=== PATIENT | female | born 1950 | race Caucasian/White ===

== ENCOUNTER 2021-11-08 10:27 | Emergency (ER) | payer OTHER ==
--- NOTE | 2021-11-08 10:56 | RAD REPORT ---
EXAM DESCRIPTION: CT - Ct Stroke Brain Wo Cont - 11/08/2021 10:43 am CLINICAL HISTORY: Weakness COMPARISON: No comparisons TECHNIQUE: All CT scans are performed using dose optimization technique as appropriate and may inclu de automated exposure control or mA/KV adjustment according to patient size. FINDINGS: No intracranial hemorrhage, hydrocephalus or extra-axial fluid collection.No areas of brai n edema or evidence of midline shift. Subcortical hypoattenuation left frontal lobe without edema. Th is does not appear acute and may reflect chronic small vessel ischemic changes. The paranasal sinuses and mastoids are clear. The calvarium is intact. IMPRESSION: Subcortical hypoattenuation in the left frontal lobe is favored chronic. No acute large vascular territory infarcts or hemorrhage. MRI more sensitive for acute ischemia. Regarding no acute findings, discussed with Dr. Flores by Dr. Erickson at 1040 am on 11/08/21.
[2021-11-08 11:03] LABS: Absolute Lymphocytes (CBC) 3.6 K/uL (0.7-4.9); Hematocrit 44.4 % (36.0-45.0); Lymphocytes % 35.3 % (15.3-44.8); MPV 8.3 fL (7.6-11.3); RBC Red Blood Cell Count 4.88 M/uL (3.86-4.86)
[2021-11-08] MEDS ORDERED: FOLIC ACID 5 MG/ML VIAL ONE (11:04)
[2021-11-08] MEDS ORDERED: TENECTEPLASE 50 MG/10 ML VIAL IV ONE (11:04)
[2021-11-08] MEDS ORDERED: NA CHLORIDE 0.9% 1,000 ML ONE (11:05)
[2021-11-08 11:16] LABS: Potassium 3.4 mmol/L (3.5-5.1)
--- NOTE | 2021-11-08 11:25 | RAD REPORT ---
EXAM DESCRIPTION: RAD - Chest Single View - 11/08/2021 11:09 am CLINICAL HISTORY: STROKE ALERT COMPARISON: No comparisons FINDINGS: Lines: None. Lungs: No evidence of edema or pneumonia. Pleural: No significant pleural effusions or pneumothorax. Cardiac: The heart size is within normal limits. Bones: No acute fractures. Other: IMPRESSION: No acute cardiopulmonary disease.
--- NOTE | 2021-11-08 11:49 | RAD REPORT ---
EXAM DESCRIPTION: CT - Neck Angio - 11/08/2021 11:39 am CLINICAL HISTORY: Neuro deficit, acute, stroke suspected COMPARISON: No comparisons TECHNIQUE: CT angiography of the neck vessels was performed with MIPs. All CT scans are performed using dose optimization technique as appropriate and may include automated exposure control or mA/KV adjustment according to patient size. FINDINGS: A left aortic arch is identified with normal three vessel configuration of the great vesse ls. Intraluminal thrombus in the left internal carotid artery proximally. No stenoses.The right carotid s ystem is unremarkable. No significant stenosis is identified involving the cervical segments of both internal carotid arteri es. Normal flow is seen within both vertebral arteries. Emphysema IMPRESSION: Irregular intraluminal thrombus in the left proximal ICA could be the source of an embol ic infarct. No hemodynamically significant stenoses.
--- NOTE | 2021-11-08 11:50 | RAD REPORT ---
EXAM DESCRIPTION: CT - Head angio - 11/08/2021 11:39 am CLINICAL HISTORY: Neuro deficit, acute, stroke suspected COMPARISON: Ct Stroke Brain Wo Cont dated 11/08/2021 TECHNIQUE: CT angiography of the head was performed with MIPs. All CT scans are performed using dose optimization technique as appropriate and may include automated exposure control or mA/KV adjustment according to patient size. FINDINGS: Anterior circulation: No aneurysm or large vessel occlusion. No hemodynamically significant stenosis. No arteriovenous malf ormation identified. Posterior circulation: No aneurysm or large vessel occlusion. No hemodynamically significant stenosis. No arteriovenous malf ormation identified. IMPRESSION: No significant flow abnormality is detected.
--- NOTE | 2021-11-08 12:02 | EDPHYS ---
Physician Documentation [facility] Name: Emma Johnson Age: 71 yrs Sex: Female : 1950 Arrival Date: 11/08/2021 Time: 10:28 Bed 8 Private MD: None, None ED Physician Chandrakant Flores HPI: 11/08 10:56 This 71 yrs old Female presents to ER via Wheelchair with complaints of ric Weakness. 10:56 The patient presents to the emergency department with weakness of the right upper ric extremity, right lower extremity, that is mild, a speech or higher order brain function problem, aphasia, difficulty standing, the patient is off balance, paresthesias of the right lower extremity, right upper extremity, that is mild. Onset: The symptoms/episode began/occurred 1.25 hour(s) ago. Context: occurred at an industrial site. Associated signs and symptoms: The patient has no apparent associated signs or symptoms. Severity of symptoms: At their worst the symptoms were mild in the emergency department the symptoms have improved mildly. Patient's baseline: Neuro: alert but confused. Current symptoms: Currently, the patient is not experiencing any symptoms. Current symptoms: right arm and leg, heavy, speech difficult. The patient has not experienced similar symptoms in the past. Historical: - Allergies: 10:29 PENICILLINS; tw2 10:29 TETRACYCLINES; tw2 - Home Meds: 10:29 None [Active]; tw2 - PMHx: 10:29 None; tw2 - PSHx: 10:29 None; tw2 - Immunization history:: Client reports receiving the 2nd dose of the Covid vaccine. - Social history:: Smoking status: Patient reports the use of cigarette tobacco products, 1 or 2 cigarettes. - Family history:: not pertinent. ROS: 10:56 Constitutional: Negative for fever, chills, and weight loss, Eyes: Negative for injury, ric pain, redness, and discharge, ENT: Negative for injury, pain, and discharge, Neck: Negative for injury, pain, and swelling, Cardiovascular: Negative for chest pain, palpitations, and edema, Respiratory: Negative for shortness of breath, cough, wheezing, and pleuritic chest pain, Abdomen/GI: Negative for abdominal pain, nausea, vomiting, diarrhea, and constipation, Back: Negative for injury and pain, : Negative for injury, bleeding, discharge, and swelling, MS/Extremity: Negative for injury and deformity, Skin: Negative for injury, rash, and discoloration, Psych: Negative for depression, anxiety, suicide ideation, homicidal ideation, and hallucinations, Allergy/Immunology: Negative for hives, rash, and allergies, Endocrine: Negative for neck swelling, polydipsia, polyuria, polyphagia, and marked weight changes, Hematologic/Lymphatic: Negative for swollen nodes, abnormal bleeding, and unusual bruising. 10:56 Neuro: Positive for speech changes, weakness, of the right arm and right leg. Exam: 10:56 Constitutional: This is a well developed, well nourished patient who is awake, alert, ric and in no acute distress. Head/Face: Normocephalic, atraumatic. Eyes: Pupils equal round and reactive to light, extra-ocular motions intact. Lids and lashes normal. Conjunctiva and sclera are non-icteric and not injected. Cornea within normal limits. Periorbital areas with no swelling, redness, or edema. ENT: Nares patent. No nasal discharge, no septal abnormalities noted. Tympanic membranes are normal and external auditory canals are clear. Oropharynx with no redness, swelling, or masses, exudates, or evidence of obstruction, uvula midline. Mucous membranes moist. Neck: Trachea midline, no thyromegaly or masses palpated, and no cervical lymphadenopathy. Supple, full range of motion without nuchal rigidity, or vertebral point tenderness. No Meningismus. Chest/axilla: Normal chest wall appearance and motion. Nontender with no deformity. No lesions are appreciated. Cardiovascular: Regular rate and rhythm with a normal S1 and S2. No gallops, murmurs, or rubs. Normal PMI, no JVD. No pulse deficits. Respiratory: Lungs have equal breath sounds bilaterally, clear to auscultation and percussion. No rales, rhonchi or wheezes noted. No increased work of breathing, no retractions or nasal flaring. Abdomen/GI: Soft, non-tender, with normal bowel sounds. No distension or tympany. No guarding or rebound. No evidence of tenderness throughout. Back: No spinal tenderness. No costovertebral tenderness. Full range of motion. Skin: Warm, dry with normal turgor. Normal color with no rashes, no lesions, and no evidence of cellulitis. MS/ Extremity: Pulses equal, no cyanosis. Neurovascular intact. Full, normal range of motion. Neuro: Awake and alert, GCS 15, oriented to person, place, time, and situation. Cranial nerves II-XII grossly intact. Motor strength 5/5 in all extremities. Sensory grossly intact. Cerebellar exam normal. Normal gait. Psych: Awake, alert, with orientation to person, place and time. Behavior, mood, and affect are within normal limits. 11:16 ECG was reviewed by the Attending Physician. [facility] Vital Signs: 10:32 BP 156 / 74; Pulse 90; Resp 17; Temp 98.3(TE); Pulse Ox 100% on R/A; tw2 10:45 Weight 58.97 kg (R); Height 5 ft. 5 in. (165.10 cm); tw2 10:50 BP 182 / 96; Pulse 82; Resp 17; Pulse Ox 100% ; bp 11:15 BP 154 / 67; Pulse 78; Resp 20; Pulse Ox 96% ; bp 12:38 BP 154 / 71; Pulse 81; Resp 17; Pulse Ox 99% ; bp 13:57 BP 136 / 66; Pulse 72; Resp 16; Pulse Ox 95% ; bp 10:45 Body Mass Index 21.63 (58.97 kg, 165.10 cm) tw2 NIH Stroke Scale Scores: 10:40 NIHSS Score: 0 bp 10:56 NIHSS Score: 2 ric MDM: 10:31 Patient medically screened. [facility] 11:00 Data reviewed: vital signs, nurses notes, lab test result(s), EKG, radiologic studies, [facility] CT scan, plain films. Data interpreted: [employer] worker: rate is 82 beats/min, rhythm is regular, Pulse oximetry: on room air is 100 %. Test interpretation: by ED physician or midlevel provider: ECG, plain radiologic studies. Counseling: I had a detailed discussion with the patient and/or guardian regarding: the historical points, exam findings, and any diagnostic results supporting the discharge/admit diagnosis, lab results, radiology results. 11/08 10:48 Order name: Basic Metabolic Panel; Complete Time: 11:58 bp 11/08 10:48 Order name: CBC with Diff; Complete Time: 11:58 bp 11/08 10:48 Order name: Protime (+inr); Complete Time: 11:58 bp 11/08 10:48 Order name: Ptt, Activated; Complete Time: 11:58 bp 02 10:55 Order name: SARS-COV-2 RT PCR (Document "Date of Onset" if Symptomatic) [facility] 11/08 10:56 Order name: Sed Rate; Complete Time: 11:58 ric 11/08 10:38 Order name: CT Stroke Brain w/o Contrast; Complete Time: 11:58 bd 11/08 10:48 Order name: Stroke CXR 1 View; Complete Time: 11:58 bp 11/08 10:55 Order name: CT Head Angio; Complete Time: 11:58 ric 11/08 10:55 Order name: CT Neck Angio; Complete Time: 11:58 ric 11/08 10:56 Order name: CRP; Complete Time: 11:58 ric 11/08 12:03 Order name: Brain Wo Cont EDMS 11/08 12:33 Order name: Urine Dipstick-Ancillary EDMS 11/08 10:48 Order name: EKG; Complete Time: 10:49 bp 11/08 10:48 Order name: Accucheck; Complete Time: 10:48 bp 11/08 10:48 Order name: Cardiac monitoring; Complete Time: 10:48 bp 11/08 10:48 Order name: EKG - Nurse/Tech; Complete Time: 10:48 bp 11/08 10:48 Order name: IV Saline Lock; Complete Time: 10:48 bp 11/08 10:48 Order name: Labs collected and sent; Complete Time: 10:48 bp 11/08 10:48 Order name: NPO; Complete Time: 10:48 bp 11/08 10:48 Order name: O2 Per Protocol; Complete Time: 10:48 bp 11/08 10:48 Order name: O2 Sat Monitoring; Complete Time: 10:48 bp 11/08 10:48 Order name: Stroke Swallow Screen; Complete Time: 10:56 bp 02 10:56 Order name: Urine Dipstick-Ancillary (obtain specimen); Complete Time: 12:57 ric EC:16 Rate is 80 beats/min. Rhythm is regular. QRS [place] is Normal. PA interval is normal. QRS ric interval is normal. QT interval is normal. No Q waves. T waves are Normal. Clinical impression: NSR w/ Non-specific ST/T Changes and No evidence of ischemia. Interpreted by me. Reviewed by me. Administered Medications: 11:05 Drug: NS 0.9% 1000 ml Route: IV; Rate: 1 bolus; Site: right antecubital; bp 13:59 Follow up: IV Status: Completed infusion; IV Intake: 1000ml bp 11:05 Drug: foLIC Acid 1 mg Route: IVPB; Site: right antecubital; bp 13:59 Follow up: IV Status: Completed infusion bp 11:05 Drug: TNK FOR STROKE - Tenecteplase 0.25 mg/kg {Co-Signature: cuevas (Ember bp Au-Stager RN).} Route: IV; Rate: per protocol; Site: right antecubital; 11:11 Drug: TNK FOR STROKE - Tenecteplase 0.25 mg/kg {Co-Signature: cuevas (Ember bp Au-Stager RN).} Route: IV; Rate: per protocol; Site: right antecubital; 13:58 Follow up: IV Status: Completed infusion bp 11:12 Not Given (MED UNAVAILABLEe): Pepcid (famotidine) 20 mg IVP once; dilute with 10 mL bp 0.9% NaCl; give over 2 minutes 12:10 Drug: Aspirin 81 mg Route: PO; bp 12:30 Follow up: Response: No adverse reaction bp 12:10 Drug: Lipitor (atorvastatin) 20 mg Route: PO; bp 12:30 Follow up: Response: No adverse reaction bp 12:15 Drug: Potassium Effervescent Tablet 25 mEq Route: PO; bp 12:30 Follow up: Response: No adverse reaction bp Disposition Summary: 11/08/21 12:02 Transfer Ordered Transfer Location: 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 Level of Consciousness (LOC) - 0(Alert) 1b. Level of Consciousness (LOC) (Month \\T\\ Age) - 0(Both) 1c. LOC Commands (Open \\T\\ Closes Eyes/Content Strategy Lead) - 0(Both) 2. Best Gaze (Lateral Gaze Paresis) - 0(Normal) 3. Visual Field Loss - 0(No visual loss) 4. Facial Palsy - 0(Normal) 5a. Left Arm: Motor (10-second hold) - 0(No drift) 5b. Right Arm: Motor (10-second hold) - 0(No drift) 6a. Left Leg: Motor (5-second hold - always test supine) - 0(No drift) 6b. Right Leg: Motor (5-second hold - always test supine) - 0(No drift) 7. Limb Ataxia (finger/nose \\T\\ heel/ratliff - test with eyes open) - 0(Absent) 8. Sensory Loss (pinprick arms/legs/face) - 0(Normal) 9. Best Language: Aphasia (description/naming/reading) - 0(No aphasia) 10. Dysarthria (speech clarity - read or repeat words) - 0(Normal) 11. Extinction and Inattention (visual/tactile/auditory/spatial/personal) - 0(No abnormality) Initials: bp NIH Stroke Scale - NIH Stroke Score Date: 11/08/2021 Time: 10:56 Total Score = 2 1a. Level of Consciousness (LOC) - 0(Alert) 1b. Level of Consciousness (LOC) (Month \\T\\ Age) - 0(Both) 1c. LOC Commands (Open \\T\\ Closes Eyes/Content Strategy Lead) - 0(Both) 2. Best Gaze (Lateral Gaze Paresis) - 0(Normal) 3. Visual Field Loss - 0(No visual loss) 4. Facial Palsy - 0(Normal) 5a. Left Arm: Motor (10-second hold) - 0(No drift) 5b. Right Arm: Motor (10-second hold) - 0(No drift) 6a. Left Leg: Motor (5-second hold - always test supine) - 0(No drift) 6b. Right Leg: Motor (5-second hold - always test supine) - 0(No drift) 7. Limb Ataxia (finger/nose \\T\\ heel/ratliff - test with eyes open) - 0(Absent) 8. Sensory Loss (pinprick arms/legs/face) - 0(Normal) 9. Best Language: Aphasia (description/naming/reading) - 1(Mild to moderate aphasia) 10. Dysarthria (speech clarity - read or repeat words) - 1(Mild to Moderate) 11. Extinction and Inattention (visual/tactile/auditory/spatial/personal) - 0(No abnormality) Initials: ric Signatures: Dispatcher [employer] EDMS Chandrakant Flores MD MD cha Wise, Tara RN RN tw2 Josue Ma RN RN bp Ember Vizcaino RN cuevas Corrections: (The following items were deleted from the chart) 12:03 10:56 MR STROKE PROTOCOL+MRI.RAD.MARIOZ ordered. EDMS EDMS 12:10 12:02 to [facility] ric 13:59 12:10 to [facility] bp
--- NOTE | 2021-11-08 12:02 | ER ---
Nurse's Notes 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 10:30 An acute neurological deficit is present. The charge nurse has been notified. The bp patient has been moved to a treatment area. 10:32 Coronavirus screen: At this time, the client does not indicate any symptoms associated tw2 with coronavirus-19. Ebola Screen: Patient denies travel to an Ebola-affected area in the 21 days before illness onset. Initial Sepsis Screen: Does the patient meet any 2 criteria? No. Patient's initial sepsis screen is negative. Does the patient have a suspected source of infection? No. Patient's initial sepsis screen is negative. Risk Assessment: Do you want to hurt yourself or someone else? Patient reports no desire to harm self or others. Onset of symptoms was November 08, 2021 at 10:25. 10:32 Method Of Arrival: Wheelchair tw2 10:32 Acuity: SOMMER 3 tw2 Triage Assessment: 10:30 General: Appears in no apparent distress. slender, Behavior is calm, cooperative, tw2 appropriate for age. Pain: Denies pain. Neuro: Reports numbness in right arm speech is different. 10:32 The onset of the patients symptoms was November 08, 2021 at 09:57. tw2 Stroke Activation: Symptom onset < 3 hours Physician: Stroke Attending; Name: ; Notified At: ; Arrived At: Physician: Chief Stroke Resident; Name: ; Notified At: ; Arrived At: Physician: Stroke Resident; Name: ; Notified At: ; Arrived At: Physician: ED Attending; Name: ; Notified At: ; Arrived At: Physician: ED Resident; Name: ; Notified At: ; Arrived At: Historical: - Allergies: 10:29 PENICILLINS; tw2 10:29 TETRACYCLINES; tw2 - Home Meds: 10:29 None [Active]; tw2 - PMHx: 10:29 None; tw2 - PSHx: 10:29 None; tw2 - Immunization history:: Client reports receiving the 2nd dose of the Covid vaccine. - Social history:: Smoking status: Patient reports the use of cigarette tobacco products, 1 or 2 cigarettes. - Family history:: not pertinent. Screenin:34 Abuse screen: Denies threats or abuse. Nutritional screening: No deficits noted. tw2 Tuberculosis screening: No symptoms or risk factors identified. Fall Risk None identified. Assessment: 10:40 VAN Scoring: Arm Drift: Patients demonstrates NO arm weakness. Patient is VAN Negative. bp General: PT RETURNED FROM CT. 10:44 Reassessment: provider at bedside. bp 11:00 T-PA (Activase) Screening: Indications: Definite evidence of stroke, ischemic, embolic, bp or hypertensive: Yes. Treatment will start within 4.5 hours onset of symptoms: Yes. No evidence of intracranial hemorrhage or CT of head and no evidence of peripheral hemorrhage or recent CVA: Yes. Consent for thrombolytic therapy: Yes. Contraindications: Patient reports onset of signs and symptoms of stroke greater than 6 hours ago: No. 11:05 Reassessment: TNKASE ADMINISTERED. bp 11:15 The patient has not been NPO before screening. The patient is alert, and able to follow bp commands. The patient does not exhibit slurred or garbled speech. The patient is not exhibiting difficulty speaking. The patient does not exhibit difficulty understanding words. The patient is able to swallow own secretions with no drooling or need for suction. Patient tolerated one teaspoon of water. No drooling, immediate coughing, gurgling, or clearing of the throat was noted. The patient tolerated 90mL of water. No drooling, immediate coughing, gurgling, or clearing of the throat was noted. The patient passed the bedside swallow screening. Oral medications may be given as ordered. Contact Physician for further diet orders. Provider notified of bedside swallow screening results: Chandrakant Flores MD. Reassessment: NO NEURO DEFICITS NOTED. 12:38 Reassessment: REPORT TO SAHIL PALOMINO FOR [facility] 7408. bp 13:57 Reassessment: TRANSFER AT /S. bp Vital Signs: 10:32 BP 156 / 74; Pulse 90; Resp 17; Temp 98.3(TE); Pulse Ox 100% on R/A; tw2 10:45 Weight 58.97 kg (R); Height 5 ft. 5 in. (165.10 cm); tw2 10:50 BP 182 / 96; Pulse 82; Resp 17; Pulse Ox 100% ; bp 11:15 BP 154 / 67; Pulse 78; Resp 20; Pulse Ox 96% ; bp 12:38 BP 154 / 71; Pulse 81; Resp 17; Pulse Ox 99% ; bp 13:57 BP 136 / 66; Pulse 72; Resp 16; Pulse Ox 95% ; bp 10:45 Body Mass Index 21.63 (58.97 kg, 165.10 cm) tw2 NIH Stroke Scale Scores: 10:40 NIHSS Score: 0 bp 10:56 NIHSS Score: 2 ric ED Course: 10:28 Patient arrived in ED. bp1 10:29 None, None is Private Physician. bp1 10:31 Chandrakant Flores MD is Attending Physician. ric 10:31 Josue Ma, GEORGETTE is Primary Nurse. bp 10:33 Triage completed. tw2 10:34 Arm band placed on. tw2 10:44 CT Stroke Brain w/o Contrast In Process Unspecified. EDMS 10:45 Patient has correct armband on for positive identification. Bed in low position. Call bp light in reach. Side rails up X2. Adult w/ patient. 10:45 Inserted saline lock: 20 gauge in right antecubital area, using aseptic technique. bp Blood collected. 11:08 X-ray completed. Portable x-ray completed in exam room. Patient tolerated procedure mh1 well. 11:11 Stroke CXR 1 View In Process Unspecified. EDMS 11:40 CT Head Angio In Process Unspecified. EDMS 11:40 CT Neck Angio In Process Unspecified. EDMS 12:52 Brain Wo Cont In Process Unspecified. EDMS 13:57 No provider procedures requiring assistance completed. Patient transferred, IV remains bp in place. Administered Medications: 11:05 Drug: NS 0.9% 1000 ml Route: IV; Rate: 1 bolus; Site: right antecubital; bp 13:59 Follow up: IV Status: Completed infusion; IV Intake: 1000ml bp 11:05 Drug: foLIC Acid 1 mg Route: IVPB; Site: right antecubital; bp 13:59 Follow up: IV Status: Completed infusion bp 11:05 Drug: TNK FOR STROKE - Tenecteplase 0.25 mg/kg {Co-Signature: cuevas (Ember bp Au-Stager RN).} Route: IV; Rate: per protocol; Site: right antecubital; 11:11 Drug: TNK FOR STROKE - Tenecteplase 0.25 mg/kg {Co-Signature: cuevas (Ember bp Au-Stager RN).} Route: IV; Rate: per protocol; Site: right antecubital; 13:58 Follow up: IV Status: Completed infusion bp 11:12 Not Given (MED UNAVAILABLEe): Pepcid (famotidine) 20 mg IVP once; dilute with 10 mL bp 0.9% NaCl; give over 2 minutes 12:10 Drug: Aspirin 81 mg Route: PO; bp 12:30 Follow up: Response: No adverse reaction bp 12:10 Drug: Lipitor (atorvastatin) 20 mg Route: PO; bp 12:30 Follow up: Response: No adverse reaction bp 12:15 Drug: Potassium Effervescent Tablet 25 mEq Route: PO; bp 12:30 Follow up: Response: No adverse reaction bp Medication: 11:00 VIS not applicable for this client. bp Intake: 13:59 IV: 1000ml; Total: 1000ml. bp Outcome: 12:02 ER care complete, transfer ordered by . ric 13:57 Transferred by ground EMS to [facility]. bp 13:57 Condition: stable 13:57 Instructed on the need for transfer. 13:59 Patient left the ED. bp NIH Stroke Scale - NIH Stroke Score Date: 11/08/2021 Time: 10:40 Total Score = 0 1a. Level of Consciousness (LOC) - 0(Alert) 1b. Level of Consciousness (LOC) (Month \T\ Age) - 0(Both) 1c. LOC Commands (Open \T\ Closes Eyes/Benefits Specialist) - 0(Both) 2. Best Gaze (Lateral Gaze Paresis) - 0(Normal) 3. Visual Field Loss - 0(No visual loss) 4. Facial Palsy - 0(Normal) 5a. Left Arm: Motor (10-second hold) - 0(No drift) 5b. Right Arm: Motor (10-second hold) - 0(No drift) 6a. Left Leg: Motor (5-second hold - always test supine) - 0(No drift) 6b. Right Leg: Motor (5-second hold - always test supine) - 0(No drift) 7. Limb Ataxia (finger/nose \T\ heel/ratliff - test with eyes open) - 0(Absent) 8. Sensory Loss (pinprick arms/legs/face) - 0(Normal) 9. Best Language: Aphasia (description/naming/reading) - 0(No aphasia) 10. Dysarthria (speech clarity - read or repeat words) - 0(Normal) 11. Extinction and Inattention (visual/tactile/auditory/spatial/personal) - 0(No abnormality) Initials: bp NIH Stroke Scale - NIH Stroke Score Date: 11/08/2021 Time: 10:56 Total Score = 2 1a. Level of Consciousness (LOC) - 0(Alert) 1b. Level of Consciousness (LOC) (Month \T\ Age) - 0(Both) 1c. LOC Commands (Open \T\ Closes Eyes/Benefits Specialist) - 0(Both) 2. Best Gaze (Lateral Gaze Paresis) - 0(Normal) 3. Visual Field Loss - 0(No visual loss) 4. Facial Palsy - 0(Normal) 5a. Left Arm: Motor (10-second hold) - 0(No drift) 5b. Right Arm: Motor (10-second hold) - 0(No drift) 6a. Left Leg: Motor (5-second hold - always test supine) - 0(No drift) 6b. Right Leg: Motor (5-second hold - always test supine) - 0(No drift) 7. Limb Ataxia (finger/nose \T\ heel/ratliff - test with eyes open) - 0(Absent) 8. Sensory Loss (pinprick arms/legs/face) - 0(Normal) 9. Best Language: Aphasia (description/naming/reading) - 1(Mild to moderate aphasia) 10. Dysarthria (speech clarity - read or repeat words) - 1(Mild to Moderate) 11. Extinction and Inattention (visual/tactile/auditory/spatial/personal) - 0(No abnormality) Initials: ric Signatures: Dispatcher [employer] EDChandrakant Garcia MD MD cha Harvey, [facility] Rhina Hansen RN RN tw2 Josue Ma RN RN bp Rosario Talbot bp1 Ember Vizcaino RN cuevas Corrections: (The following items were deleted from the chart) 10:33 10:30 Chief complaint: tw2 tw2 10:44 10:32 Onset of symptoms was November 08, 2021 at 09:57 tw2 bp 10:44 10:32 Stroke Activation: Symptom onset < 3 hours tw2 bp
[2021-11-08] MEDS ORDERED: ATORVASTATIN 20 MG TAB ONE (12:21)
[2021-11-08] MEDS ORDERED: ASPIRIN EC 81 MG TAB PO ONE (12:21)
[2021-11-08] MEDS ORDERED: POTASSIUM 25 MEQ EFFERV TAB ONE (12:22)
[2021-11-08 12:33] LABS: Urine Blood Negative (Negative); Urine Glucose Negative (Negative); Urine Protein Negative (Negative); Urine Specific Gravity 1.015 (1.005-1.030); Urine pH 6.5 (5.0-7.0)
--- NOTE | 2021-11-08 13:10 | RAD REPORT ---
EXAM DESCRIPTION: MRI - Brain Wo Cont - 11/08/2021 12:50 pm CLINICAL HISTORY: Right arm weakness/slurred speech COMPARISON: Head CT November 08, 2021 TECHNIQUE: Axial, sagittal, and coronal magnetic resonance images of the brain were obtained. FINDINGS: Diffusion-weighted/ADC mapping reveals small patchy areas of abnormal signal within deep and subcorti sarita white matter left frontal lobe. These have the appearance of early subacute infarction. Abnormal signal also involves the junction of the left hindu/left occipital lobe measuring 15 millim eters. This has the appearance of late subacute infarction The ventricles are normal caliber. An extra-axial fluid collection is not noted. Fluid within the sinuses/mastoids is not seen IMPRESSION: Subacute infarction left cerebrum . The source could be the left internal carotid artery or heart
[2021-11-08 14:18] VITALS: TEMP 98.3
[2021-11-08 14:24] VITALS: BP 136/66; O2SAT 95
--- NOTE | 2021-11-10 14:34 | EKG ---
Test Date: 2021-11-08 Test Time: 10:39:49 Quantitative Analyst Developer: CONSTANTIN MEASUREMENT RESULTS: Intervals: Rate: 80 LA: 130 QRSD: 86 QT: 382 QTc: 440 [place]: P: 86 LA: 130 QRS: 84 T: 60 INTERPRETIVE STATEMENTS: Sinus rhythm with premature atrial complexes Nonspecific ST abnormality Abnormal ECG No previous ECG available for comparison Electronically Signed On 11-10-21 14:33:22 CDT by Glen Solis
== END 2021-11-08 13:59 | disposition short-term general hospital (02) ==
LOC: ER 10:27
DX: I63.032 Cerebral infarction due to thrombosis of left carotid artery (principal); R47.01 Aphasia; R29.702 NIHSS score 2; F17.210 Nicotine dependence, cigarettes, uncomplicated; Z88.0 Allergy status to penicillin; Z88.1 Allergy status to other antibiotic agents; Z20.822 Contact with and (suspected) exposure to COVID-19
CPT/HCPCS: 96365; 96368; 92977; 93005; 85025; 80048; 36415; 85610; 85730; 85652; 81003; 86140; 70496; 70498; 70450; 71045; 70551; 99291; 96366; U0003; Q9967; J3101; J7030